=== PATIENT | female | born 2000 | race Caucasian/White ===

== ENCOUNTER 2022-12-24 11:40 | Emergency (ER) | payer OTHER, SELFPAY ==
[2022-12-24 11:46] VITALS: BP 119/76; PULSE 76; RESP 16; TEMP 36.4; O2SAT 98; BMI 28.7
--- NOTE | 2022-12-24 13:32 | ED_ITS ---
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 She picked up a bag of trash today and there was a needle in it which appears to the plastic and then went through her jeans. She noted that it was a solid bore needle, but did not otherwise save it. She says she felt ago under skin but she can not feel anything now and says there was no charo on her skin. She denies any previous medical history. Related Data Home Medications Medication Instructions Recorded Confirmed No Known Home Medications 12/24/22 12/24/22 Allergies Allergy/AdvReac Type Severity Reaction Status Date / Time No Known Drug Allergies Allergy Verified 12/24/22 11:44 Exam Narrative: Exam Narrative: Vital signs reviewed In general, an alert, well-appearing young woman. Skin: Warm and dry, no apparent injury. Const: Vital Signs, click to edit/add: Vital Signs - 24 hr 12/24/22 11:46 Temperature 97.6 F Pulse Rate [Pulse Oximeter] 76 Respiratory Rate 16 Blood Pressure [Ri ght Upper Arm] 119/76 Pulse Oximetry 98 Oxygen Delivery Me thod Room Air Course Course Hospital Course: Reviewed with her that this is an exceedingly low risk needlestick, the needle itself was likely sitting out for at least some period of time, it is solid bore, in a low risk environment, went through several surfaces prior to hitting her skin, and it was not a deep puncture. I would not recommend prophylaxis. We did draw blood for HIV and hepatitis series. She is immunized for hepatitis- B. She can have labs redrawn again in 6 weeks through [facility] at [employer]. Vital Signs Vital signs: Initial Vital Signs Temperature 97.6 F 12/24/22 11:46 Temperature Source Temporal Artery Scan 12/24/22 11:46 Pulse Rate 76 12/24/22 11:46 Respiratory Rate 16 12/24/22 11:46 Blood Pressure 119/76 12/24/22 11:46 Blood Pressure Mean 90 12/24/22 11:46 Blood Pressure Position Sitting 12/24/22 11:46 Pulse Oximetry 98 12/24/22 11:46 Oxygen Delivery Method Room Air 12/24/22 11:46 Vital Signs Temperature 97.6 F 12/24/22 11:46 Pulse Rate 76 12/24/22 11:46 Respiratory Rate 16 12/24/22 11:46 Blood Pressure 119/76 12/24/22 11:46 Pulse Oximetry 98 12/24/22 11:46 Oxygen Delivery Method Room Air 12/24/22 11:46 Temperature 97.6 F 12/24/22 11:46 Pulse Rate 76 12/24/22 11:46 Respiratory Rate 16 12/24/22 11:46 Blood Pressure 119/76 12/24/22 11:46 Pulse Oximetry 98 12/24/22 11:46 Oxygen Delivery Method Room Air 12/24/22 11:46 Discharge Plan Discharge Clinical Impression: Needlestick injury accident Patient Disposition: Home, Self-Care Condition: Stable Additional Instructions: Follow-up with your employee health for repeat labs in 6 weeks. Today's exposure is very low risk. Prescriptions: No Action No Known Home Medications Follow Up/Referrals: Provider,Not a Local [Primary Care Provider] - Stand Alone Forms: MyHealth Info Instructions
[2022-12-24 14:47] LABS: HIV 1/2/P24 Combo Screen* Negative (Negative)
[2022-12-25 20:10] LABS: Hep A Ab, IgM Negative (Negative); Hep B Core Ab, IgM Negative (Negative); Hep B Surface Antigen Negative (Negative); Hep C Ab by CIA Index 0.06 IV; Hep C Ab by CIA Interp Negative (Negative)
== END 2022-12-24 13:04 | disposition home or self-care (01) ==
PROVIDERS: Emergency Provider Emergency Medicine
DX: S81.839A Puncture wound without foreign body, unspecified lower leg, initial encounter (principal); W46.1XXA Contact with contaminated hypodermic needle, initial encounter
CPT/HCPCS: 36415; 80074; 86701; 86702; 86703; 99282; 99283